=== PATIENT | female | born 1960 | race Caucasian/White ===

== ENCOUNTER 2022-10-02 12:40 | Emergency (ER) | payer SELFPAY ==
[2022-10-02] VITALS (49 sets, daily range): BP systolic 125–194; BP diastolic 69–114; PULSE 73–112; RESP 10–20; TEMP 35.8–38.4; O2SAT 95–100; BMI 35.6
--- NOTE | 2022-10-02 12:46 | CT_ITS ---
The [address] [address] Patient Name: BRIJESH CHOWDARY MRN: [id number] date: 1960 Sex: F Assigned Patient Location: ER Current Patient Location: Accession/Order Number: [id number] Exam Date: 10/02/2022 13:02 Report Date: 10/02/2022 13:32 At the request of: MERLYN CLINE Procedure: CT stroke head/brain wo con EXAM: CT stroke head/brain wo con; [id number] REASON FOR EXAM: altered MS COMPARISON: None. TECHNIQUE: Axial CT images of the head obtained without contrast. Multiplanar reformats generated at the scanner. Dose reduction technique used: Automated exposure control and/or adjustment of the mA and/or kV according to patient size and/or use of iterative reconstruction technique. FINDINGS: Parenchyma: -Mild generalized cerebral volume loss. -No midline shift or mass effect. Basilar cisterns are patent. -No acute intracranial hemorrhage. -Medium size area of peripheral hypoattenuation and encephalomalacia in the medial aspect of the left occipital lobe and left posterior parietal lobe (for example series 6 image 29). -No other loss of jennings-white differentiation. Extra-axial spaces: No extra-axial fluid collection or hemorrhage. Ventricles: Within expected limits given degree of cerebral volume loss. Mild ex vacuo dilatation in the occipital horn of the left lateral ventricle. Paranasal sinuses: Visualized paranasal sinuses are clear. Mastoid air cells: Visualized mastoids are clear. Orbits: No acute abnormality. Osseous: No acute findings. Soft tissues: No acute abnormality. CT/CT stroke head/brain wo con IMPRESSION: 1. Medium-sized chronic appearing infarct to the left occipital lobe/posterior parietal lobe. 2. No acute intercranial hemorrhage or acute infarct demonstrated. Results of chronic appearing left occipital infarct and no acute intracranial abnormality conveyed to Anna Matthews N.P. by Dr. Clemens at 10/02/2022 10:31 AM PDT. Electronically authenticated by: TIFFANIE CLEMENS Date: 10/02/2022 13:32
--- NOTE | 2022-10-02 12:46 | XR_ITS ---
The [address] [address] Patient Name: BRIJESH CHOWDARY MRN: [id number] date: 1960 Sex: F Assigned Patient Location: ED.MAIN Current Patient Location: ER Accession/Order Number: [id number] Exam Date: 10/02/2022 13:30 Report Date: 10/02/2022 13:47 At the request of: MERLYN CLINE Procedure: XR chest 1V EXAMINATION: XR chest 1V HISTORY: altered MS COMPARISON: No relevant comparison available. FINDINGS: LUNGS: No significant pulmonary parenchymal abnormalities. VASCULATURE: No increased pulmonary vasculature. PLEURA: No pneumothorax, effusion, or pleural thickening. CARDIAC: No cardiomegaly or cardiac silhouette abnormality. MEDIASTINUM: No visible mass or adenopathy. BONES: No fracture or visible bone lesion. OTHER: Defibrillator pads partially obscure the left lung apex and base. XR/XR chest 1V IMPRESSION: 1. No acute cardiopulmonary process or suspicious findings. Electronically authenticated by: BETZAIDA WEBBER Date: 10/02/2022 13:47
--- NOTE | 2022-10-02 12:46 | ECG_ITS ---
The [facility] Test Date: 2022-10-02 Pat Name: BRIJESH CHOWDARY Department: Room: - Gender: Female Consulting Technical Director: : 1960 Requested By: MADDY HARDING Order Number: [id number] Reading MD: ARABELLA LARA Measurements Intervals Landing Rate: 79 P: 37 WV: 156 QRS: 63 QRSD: 78 T: 58 QT: 510 QTc: 545 Interpretive Statements 1100 Sinus rhythm with occasional supraventricular premature complexes ST/T wave changes, can't exclude inferolateral ischemia 8304 Long QTc interval 9150 abnormal ECG No previous ECG available for comparison Electronically Signed On 10-03-2022 7:12:39 EDT by ARABELLA LARA
[2022-10-02 13:09] LABS: Bilirubin Urine NEGATIVE (NEGATIVE); Blood Urine NEGATIVE (NEGATIVE); Clarity Urine CLEAR (CLEAR); Color Urine YELLOW (YELLOW); Glucose Urine UA 250 mg/dL (NEGATIVE); Ketones Urine 15 mg/dL (NEGATIVE); Leukocyte Esterase Urine NEGATIVE (NEGATIVE); Nitrite Urine NEGATIVE (NEGATIVE); Protein Urine NEGATIVE (NEG/TRACE); Urobilinogen Urine 0.2 EU/dL (0.2-1.0); pH Urine 5.5 (5.0-9.0)
[2022-10-02 13:18] LABS: Bacteria Urine NONE SEEN #/HPF (NONE SEEN); Mucus Urine NONE SEEN (NONE SEEN); RBC Urine 0-2 #/HPF (0-2); Squamous Epithelial Cell Urine RARE #/LPF (NONE/RARE); WBC Urine NONE SEEN #/HPF (NONE SEEN)
[2022-10-02 13:19] LABS: ABG PCO2 35.7 mmHg (35.0-45.0); HCO3 ABG 22.2 mmol/L (22.0-26.0); PO2 ABG >100.0 mmHg (80.0-100.0); pH ABG 7.401 (7.350-7.450)
[2022-10-02 13:20] LABS: Allen Test POSITIVE (POSITIVE); Base Excess ABG -2.6 mmol/L (-2.0-2.0); Liters per Minute 15; O2 Mode NRBM; Puncture Site R RADIAL
--- NOTE | 2022-10-02 13:27 | RESP.RT ---
removed NRBM due to hyperoxygenation per blood gas, placed on
--- NOTE | 2022-10-02 13:28 | RESP.RT ---
removed NRBM and placed on 2 LPM NC due to hyperoxygenation per blood gas.
[2022-10-02 14:25] LABS: Hematocrit 43.6 % (36.0-48.0); Hemoglobin 14.9 g/dL (12.0-16.0); Mean Corpuscular HGB Conc 34.2 g/dL (29.9-35.2); Mean Corpuscular Hemoglobin 28.1 pg (26.7-34.0); Mean Corpuscular Volume 82.3 fL (81.0-99.0); Mean Platelet Volume 10.5 fL (9.5-13.5); Platelet Count 425 10^3/uL (150-450); Red Cell Distribution Width 13.1 % (11.0-15.0); White Blood Count 24.7 10^3/uL (4.0-11.0)
[2022-10-02 14:32] LABS: Alanine Aminotransferase 32 U/L (14-59); Albumin Globulin Ratio 1.3; Alkaline Phosphatase 121 U/L (46-116); Anion Gap 18.1; Aspartate Amino Transferase 24 U/L (15-37); BUN Creatinine Ratio 13.6; Bilirubin Direct 0.1 mg/dL (0.0-0.2); Bilirubin Total 0.5 mg/dL (0.2-1.0); Carbon Dioxide 25.3 mmol/L (21.0-32.0); Chloride 98 mmol/L (98-107); Estimated GFR (African America >60 (>=60); Estimated GFR (Non-African Ame 55 (>=60); Globulin 3.1 g/dL; Glucose 377 mg/dL (74-106); Sodium 139 mmol/L (136-145); Total Protein 7.1 g/dL (6.4-8.2); Troponin I High Sensitivity 4.9 pg/mL (4.0-51.3)
[2022-10-02 14:38] LABS: Potassium 2.4 mmol/L (3.5-5.1)
[2022-10-02 14:51] LABS: Lymphocytes Absolute Manual 1.48 10^3/uL (1.20-3.80); Monocytes Absolute Manual 1.48 10^3/uL (0.30-0.80); Segmented Neut Absolute Manual 21.73 10^3/uL (1.4-6.5)
[2022-10-02] MEDS: PIPERACILLIN SODIUM/TAZOBACTAM 3.375 GM in 0.9 % SODIUM CHLORIDE 50 ML IV ×2 (15:07→23:45)
[2022-10-02 15:20] LABS: Ammonia <10 umol/L (11-32)
[2022-10-02 15:22] LABS: Acetaminophen <2.0 ug/mL (10.0-30.0); Alanine Aminotransferase 29 U/L (14-59); Albumin Globulin Ratio 1.2; Albumin Level 3.9 g/dL (3.4-5.0); Alkaline Phosphatase 120 U/L (46-116); Aspartate Amino Transferase 22 U/L (15-37); Bilirubin Direct 0.1 mg/dL (0.0-0.2); Bilirubin Total 0.5 mg/dL (0.2-1.0); Globulin 3.2 g/dL; Salicylate 4.3 mg/dL (<=19.9); Total Protein 7.1 g/dL (6.4-8.2)
[2022-10-02 15:26] LABS: Ethanol <3 mg/dL
--- NOTE | 2022-10-02 15:38 | CT_ITS ---
The [address] [address] Patient Name: BRIJESH CHOWDARY MRN: [id number] date: 1960 Sex: F Assigned Patient Location: ER Current Patient Location: Accession/Order Number: [id number] Exam Date: 10/02/2022 16:50 Report Date: 10/02/2022 17:32 At the request of: MERLYN CLINE Procedure: CT abdomen pelvis w con EXAM: CT abdomen pelvis w con TECHNIQUE: Axial CT images were obtained of the abdomen and pelvis with intravenous contrast. Sagittal and coronal reformatted images were also obtained. Dose reduction techniques were achieved by using automated exposure control and/or adjustment of mA and/or kV according to patient size and/or use of iterative reconstruction technique. HISTORY: elevated WBC COMPARISON: None. FINDINGS: Lower chest: Bands of linear atelectasis in the posterior lower lobes. Liver: Diffuse decreased attenuation of liver consistent with steatosis. Gallbladder: The gallbladder is unremarkable. There is no intra or extrahepatic biliary dilatation. Pancreas: The pancreas is homogeneous without evidence for mass lesion or inflammation. Spleen: The spleen is unremarkable without evidence for mass lesion. Adrenal glands: 16 mm nodule of the right adrenal gland, most likely a benign adenoma. Kidneys and bladder: The kidneys are unremarkable with no evidence for mass lesion, hydronephrosis or inflammation. The ureters demonstrate normal caliber. The urinary bladder is collapsed around a Chapman catheter. GI Tract: Stomach is unremarkable. Visualized small bowel is unremarkable without evidence for obstruction or active inflammation. The visualized portion of the large bowel is unremarkable. Reproductive: Unremarkable Lymph nodes: No retroperitoneal or abdominal lymphadenopathy. Vascular: The aorta is not dilated. Mesenteric vessels appear patent. Peritoneum: No free intraperitoneal air or fluid. No acute inflammation. Abdominal wall: Unremarkable without acute abnormality. CT/CT abdomen pelvis w con IMPRESSION: No acute abdominal pathology. No acute inflammatory process. No obstructing urinary tract stone. No evidence for bowel obstruction. Electronically authenticated by: MARYLU LARSON Date: 10/02/2022 17:32
[2022-10-02] MEDS: VANCOMYCIN HCL 1,000 MG in 0.9 % SODIUM CHLORIDE 250 ML 250 MG IV (15:42)
--- NOTE | 2022-10-02 15:43 | ED.GENADUL1 ---
HPI - General Adult General Chief complaint: Neuro Symptoms/Deficit Stated complaint: STROKE SYPTOMS Time Seen by Provider: 10/02/22 12:45 Source: patient Mode of arrival: ambulance Limitations: no limitations History of Present Illness HPI narrative: 62-year-old female presents for altered mental status. She is unable to provide any history. All the history is obtained from the paramedics and the and the son. Reports that they had a normal day yesterday and had gone out for some ice cream. They were watching TV and she went to bed about 8 PM and that was the last known well. She woke up today and wasn't quite responsive so he eventually called paramedics and they transported her here. They had a blood sugar of two hundred ninety and they gave her 8 mg total of Narcan with no significant change. She had not complained of a headache or fever or abdominal pain yesterday she wasn't coughing or short of breath. Family reports that she doesn't use any drugs. Related Data Allergies Allergy/AdvReac Type Severity Reaction Status Date / Time No Known Drug Allergies Allergy Verified 10/02/22 12:44 Review of Systems ROS Narrative unobtainable, altered mental status Exam Narrative Exam Narrative: Nurses note and vital signs reviewed and patient is not hypoxic. General: The patient appears to be sleeping but she'll shake her head yes or no appropriately and follows simple commands. Skin: Warm, dry, no pallor noted. There is no rash noted. Head: Normocephalic, atraumatic Eye: Normal conjunctiva, no drainage Ears, Nose, Mouth, and Throat: oral mucosa is moist. Nares patent. Cardiovascular: Regular Rate and Rhythm, not tachycardic Respiratory: Patient is in no distress, no accessory muscle use, lungs are clear to auscultation, no wheezing, rales or rhonchi Back: non-tender GI: soft and nontender Musculoskeletal: The patient has no evidence of calf tenderness, no pitting edema, symmetrical pulses noted bilaterally Neurological: she is quite drowsy. She'll follow simple commands. She is able to tell us her name. Psychiatric: not uncooperative. Difficult to test psychiatric. Constitutional Vital Signs, click to edit/add: Last Vital Signs Temp 96.4 F L 10/02/22 12:44 Pulse 102 H 10/02/22 15:30 Resp 16 10/02/22 15:30 BP 159/85 H 10/02/22 15:30 Pulse Ox 99 10/02/22 15:30 O2 Del Method Nasal Cannula 10/02/22 13:28 O2 Flow Rate 2 10/02/22 13:28 Course Vital Signs Vital signs: Vital Signs Temperature 96.4 F L 10/02/22 12:44 Pulse Rate 73 10/02/22 12:44 Respiratory Rate 10 L 10/02/22 12:44 Blood Pressure 175/82 H 10/02/22 12:44 Pulse Oximetry 100 10/02/22 12:44 Temperature 96.4 F L 10/02/22 12:44 Pulse Rate 102 H 10/02/22 15:30 Respiratory Rate 16 10/02/22 15:30 Blood Pressure 159/85 H 10/02/22 15:30 Pulse Oximetry 99 10/02/22 15:30 Oxygen Delivery Method Nasal Cannula 10/02/22 13:28 Oxygen Delivery Flow Rate 2 10/02/22 13:28 Medical Decision Making MDM Narrative Medical decision making narrative: the patient presents with altered mental status of uncertain etiology. WBC is twenty-four thousand and lactic acid is eight. Blood cultures were obtained and she was given IV Zosyn and vancomycin. She was also given IV fluids. At no point was she tachycardic or hypotensive. Chest x-ray shows no infiltrate and urinalysis does not show urinary tract infection. CAT scan of her abdomen is pending. There is no clear evidence of a stroke but I'm suspicious of a stroke and she'll likely need follow-up MRI and receiving institution, [facility]. Meningitis was also considered but LP would be difficult technically but she is covered with IV Zosyn and vancomycin. Family has requested transfer to [facility] and I've spoken to Dr. Garces from neurology who accepts the patient and I'll well also speak to the hospitalist there. ABG shows a pH of 7.40 and a CO2 of thirty-five. She is maintained excellent O2 sat duration on nasal cannula oxygen. Drug screen is pending at the time of this dictation. Differential Diagnosis Differential Diagnosis: stroke, overdose, pneumonia, sepsis, urinary tract infection, septic emboli Lab Data Lab results reviewed: Yes I reviewed the patient's lab results Labs: Lab Results 10/02/22 10/02/22 10/02/22 Range/Units 12:51 13:13 14:07 WBC 24.7 H (4.0-11.0) 10^3/uL RBC 5.30 (4.20-5.40) 10^6/uL Hgb 14.9 (12.0-16.0) g/dL Hct 43.6 (36.0-48.0) % MCV 82.3 (81.0-99.0) fL MCH 28.1 (26.7-34.0) pg MCHC 34.2 (29.9-35.2) g/dL RDW 13.1 (11.0-15.0) % Plt Count 425 (150-450) 10^3/uL MPV 10.5 (9.5-13.5) fL Seg Neuts % (Manual) 88.0 Lymphocytes % (Manual) 6.0 L (20.5-60.0) % Monocytes % (Manual) 6.0 (1.7-12.0) % Eosinophils % (Manual) 0.0 L (0.9-7.0) % Basophils % (Manual) 0.0 L (0.2-2.0) % Neutrophils # (Manual) 21.73 H (1.4-6.5) 10^3/uL Lymphocytes # (Manual) 1.48 (1.20-3.80) 10^3/uL Monocytes # (Manual) 1.48 H (0.30-0.80) 10^3/uL Eosinophils # (Manual) 0.00 (0.00-0.70) 10^3/uL Basophils # (Manual) 0.00 (0.00-0.10) 10^3/uL Puncture Site R radial ABG pH 7.401 (7.350-7.450) ABG pCO2 35.7 (35.0-45.0) mmHg ABG pO2 >100.0 H (80.0-100.0) mmHg ABG HCO3 22.2 (22.0-26.0) mmol/L ABG Base Excess -2.6 L (-2.0-2.0) mmol/L Tal Test Positive (POSITIVE) O2 Liters/Min 15 Sodium 139 (136-145) mmol/L Potassium 2.4 L* (3.5-5.1) mmol/L Chloride 98 (98-107) mmol/L Carbon Dioxide 25.3 (21.0-32.0) mmol/L Anion Gap 18.1 BUN 14.0 (7.0-18.0) mg/dL Creatinine 1.03 H (0.55-1.02) mg/dL Est GFR ( Amer) >60 (>=60) Est GFR (Non-Af Amer) 55 L (>=60) BUN/Creatinine Ratio 13.6 Glucose 377 H (74-106) mg/dL Lactate (0.4-2.0) mmol/L Calcium 9.0 (8.5-10.1) mg/dL Total Bilirubin 0.5 (0.2-1.0) mg/dL Direct Bilirubin 0.1 (0.0-0.2) mg/dL AST 24 (15-37) U/L ALT 32 (14-59) U/L Alkaline Phosphatase 121 H (46-116) U/L Ammonia (11-32) umol/L Troponin I High Sens 4.9 (4.0-51.3) pg/mL Total Protein 7.1 (6.4-8.2) g/dL Albumin 4.0 (3.4-5.0) g/dL Globulin 3.1 g/dL Albumin/Globulin Ratio 1.3 Urine Color Yellow (YELLOW) Urine Clarity Clear (CLEAR) Urine pH 5.5 (5.0-9.0) Ur Specific [place] 1.020 (1.005-1.025) Urine Protein Negative (NEG/TRACE) mg/dL Urine Glucose (UA) 250 A (NEGATIVE) mg/dL Urine Ketones 15 A (NEGATIVE) mg/dL Urine Occult Blood Negative (NEGATIVE) Urine Nitrite Negative (NEGATIVE) Urine Bilirubin Negative (NEGATIVE) Urine Urobilinogen 0.2 (0.2-1.0) EU/dL Ur Leukocyte Esterase Negative (NEGATIVE) Urine RBC 0-2 (0-2) #/HPF Urine WBC None seen (NONE SEEN) #/HPF Ur Squamous Epith Cells Rare (NONE/RARE) #/LPF Urine Bacteria None seen (NONE SEEN) #/HPF Urine Mucus None seen (NONE SEEN) Salicylates (<=19.9) mg/dL Urine Opiates Screen (NEGATIVE) Ur Buprenorphine Scrn (NEGATIVE) Ur Oxycodone Screen (NEGATIVE) Urine Methadone Screen (NEGATIVE) Ur Propoxyphene Screen (NEGATIVE) Acetaminophen (10.0-30.0) ug/mL Ur Barbiturates Screen (NEGATIVE) U Tricyclic Antidepress (NEGATIVE) Ur Phencyclidine Scrn (NEGATIVE) Ur Amphetamines Screen (NEGATIVE) U Methamphetamines Scrn (NEGATIVE) U Benzodiazepines Scrn (NEGATIVE) Urine Cocaine Screen (NEGATIVE) U Cannabinoids Screen (NEGATIVE) Ethanol Quant mg/dL 10/02/22 10/02/22 Range/Units 14:09 15:26 WBC (4.0-11.0) 10^3/uL RBC (4.20-5.40) 10^6/uL Hgb (12.0-16.0) g/dL Hct (36.0-48.0) % MCV (81.0-99.0) fL MCH (26.7-34.0) pg MCHC (29.9-35.2) g/dL RDW (11.0-15.0) % Plt Count (150-450) 10^3/uL MPV (9.5-13.5) fL Seg Neuts % (Manual) Lymphocytes % (Manual) (20.5-60.0) % Monocytes % (Manual) (1.7-12.0) % Eosinophils % (Manual) (0.9-7.0) % Basophils % (Manual) (0.2-2.0) % Neutrophils # (Manual) (1.4-6.5) 10^3/uL Lymphocytes # (Manual) (1.20-3.80) 10^3/uL Monocytes # (Manual) (0.30-0.80) 10^3/uL Eosinophils # (Manual) (0.00-0.70) 10^3/uL Basophils # (Manual) (0.00-0.10) 10^3/uL Puncture Site ABG pH (7.350-7.450) ABG pCO2 (35.0-45.0) mmHg ABG pO2 (80.0-100.0) mmHg ABG HCO3 (22.0-26.0) mmol/L ABG Base Excess (-2.0-2.0) mmol/L Tal Test (POSITIVE) O2 Liters/Min Sodium (136-145) mmol/L Potassium (3.5-5.1) mmol/L Chloride (98-107) mmol/L Carbon Dioxide (21.0-32.0) mmol/L Anion Gap BUN (7.0-18.0) mg/dL Creatinine (0.55-1.02) mg/dL Est GFR ( Amer) (>=60) Est GFR (Non-Af Amer) (>=60) BUN/Creatinine Ratio Glucose (74-106) mg/dL Lactate 8.0 H* (0.4-2.0) mmol/L Calcium (8.5-10.1) mg/dL Total Bilirubin 0.5 (0.2-1.0) mg/dL Direct Bilirubin 0.1 (0.0-0.2) mg/dL AST 22 (15-37) U/L ALT 29 (14-59) U/L Alkaline Phosphatase 120 H (46-116) U/L Ammonia <10 L (11-32) umol/L Troponin I High Sens (4.0-51.3) pg/mL Total Protein 7.1 (6.4-8.2) g/dL Albumin 3.9 (3.4-5.0) g/dL Globulin 3.2 g/dL Albumin/Globulin Ratio 1.2 Urine Color (YELLOW) Urine Clarity (CLEAR) Urine pH (5.0-9.0) Ur Specific [place] (1.005-1.025) Urine Protein (NEG/TRACE) mg/dL Urine Glucose (UA) (NEGATIVE) mg/dL Urine Ketones (NEGATIVE) mg/dL Urine Occult Blood (NEGATIVE) Urine Nitrite (NEGATIVE) Urine Bilirubin (NEGATIVE) Urine Urobilinogen (0.2-1.0) EU/dL Ur Leukocyte Esterase (NEGATIVE) Urine RBC (0-2) #/HPF Urine WBC (NONE SEEN) #/HPF Ur Squamous Epith Cells (NONE/RARE) #/LPF Urine Bacteria (NONE SEEN) #/HPF Urine Mucus (NONE SEEN) Salicylates 4.3 (<=19.9) mg/dL Urine Opiates Screen Negative (NEGATIVE) Ur Buprenorphine Scrn Negative (NEGATIVE) Ur Oxycodone Screen Negative (NEGATIVE) Urine Methadone Screen Negative (NEGATIVE) Ur Propoxyphene Screen Negative (NEGATIVE) Acetaminophen <2.0 L (10.0-30.0) ug/mL Ur Barbiturates Screen Negative (NEGATIVE) U Tricyclic Antidepress Negative (NEGATIVE) Ur Phencyclidine Scrn Negative (NEGATIVE) Ur Amphetamines Screen Negative (NEGATIVE) U Methamphetamines Scrn Negative (NEGATIVE) U Benzodiazepines Scrn Negative (NEGATIVE) Urine Cocaine Screen Negative (NEGATIVE) U Cannabinoids Screen Negative (NEGATIVE) Ethanol Quant <3 mg/dL Imaging Data CT scan - head: Radiologist's impression: CT brain per radiologist shows remote left occipital stroke. Chest x-ray per radiologist shows no infiltrate. ECG Data Attestation: I personally reviewed and interpreted this ECG as follows: (EKG on my interpretation shows sinus rhythm without acute change) Critical Care Time Critical Care Time Total Critical Care Time: 100 Attestation: due to the high probability of sudden and clinically significant deterioration the patient's condition she required the highest level of preparedness to intervene urgently. I provided critical care time including documentation time, medication orders and management, reevaluation, vital sign assessment, ordering and reviewing her lab tests and ordering and reviewing of x-ray studies. Aggregate critical care time is one hundred minutes including only time during which has engaged work directly related to her care did not include time spent treating other patients simultaneously. Discharge Plan Discharge Chief Complaint: Neuro Symptoms/Deficit Clinical Impression: Altered mental status Patient Disposition: [facility] Time of Disposition Decision: 15:59 Discharge Location: [facility] Mode of Transportation: EMS Referrals: MADDY HARDING [Primary Care Provider] - 1 week
[2022-10-02 15:44] LABS: Amphetamine Screen Urine NEGATIVE (NEGATIVE); Barbiturates Screen Urine NEGATIVE (NEGATIVE); Benzodiazepines Screen Urine NEGATIVE (NEGATIVE); Buprenorphine Screen Urine NEGATIVE (NEGATIVE); Cannabinoid Screen Urine NEGATIVE (NEGATIVE); Cocaine Screen Urine NEGATIVE (NEGATIVE); Methadone Screen Urine NEGATIVE (NEGATIVE); Methamphetamines Screen Urine NEGATIVE (NEGATIVE); Opiate Screen Urine NEGATIVE (NEGATIVE); Oxycodone Screen Urine NEGATIVE (NEGATIVE); Phencyclidine Screen Urine NEGATIVE (NEGATIVE); Tricyclic Antidepressant Urine NEGATIVE (NEGATIVE)
[2022-10-02] MEDS: 0.9 % SODIUM CHLORIDE 1,000 ML 1000 ML IV ×2 (17:21→18:35)
[2022-10-02 18:08] LABS: Lactate/Lactic Acid 7.9 mmol/L (0.4-2.0)
[2022-10-02] MEDS: POTASSIUM CHLORIDE IN WATER 10 MEQ/100 ML PIGGYBACK 100 MEQ IV ×4 (18:35→21:34)
[2022-10-02 20:19] LABS: ABG PCO2 31.2 mmHg (35.0-45.0); Allen Test POSITIVE (POSITIVE); Base Excess ABG -3.2 mmol/L (-2.0-2.0); Oxygen Saturation ABG 97.7 %; PO2 ABG 83.9 mmHg (80.0-100.0); pH ABG 7.437 (7.350-7.450)
[2022-10-02 20:20] LABS: Liters per Minute 2; O2 Mode NASAL CANNULA; Puncture Site R RADIAL
[2022-10-02] MEDS: ACETAMINOPHEN 650 MG RECTAL SUPPOSITORY PR (20:22)
[2022-10-02 20:39] LABS: Adenovirus NOT DETECTED (NOT DETECTE); Bordetella parapertussis NOT DETECTED (NOT DETECTE); Coronavirus 229E NOT DETECTED (NOT DETECTE); Coronavirus HKU1 NOT DETECTED (NOT DETECTE); Coronavirus NL63 NOT DETECTED (NOT DETECTE); Coronavirus OC43 NOT DETECTED (NOT DETECTE); Human Metapneumovirus NOT DETECTED (NOT DETECTE); Human Rhinovirus/Enterovirus NOT DETECTED (NOT DETECTE); Influenza A NOT DETECTED (NOT DETECTE); Influenza B NOT DETECTED (NOT DETECTE); Mycoplasma pneumoniae NOT DETECTED (NOT DETECTE); Parainfluenza Virus 1 NOT DETECTED (NOT DETECTE); Parainfluenza Virus 2 NOT DETECTED (NOT DETECTE); Parainfluenza Virus 3 NOT DETECTED (NOT DETECTE); Parainfluenza Virus 4 NOT DETECTED (NOT DETECTE); Respiratory Syncytial Virus NOT DETECTED (NOT DETECTE); SARS-CoV-2 NOT DETECTED (NOT DETECTE)
[2022-10-02 21:09] LABS: Troponin I High Sensitivity 15.4 pg/mL (4.0-51.3)
[2022-10-02 21:12] LABS: Lactate/Lactic Acid 7.6 mmol/L (0.4-2.0)
--- NOTE | 2022-10-02 21:46 | ED_ITS ---
HPI - General Adult General Chief complaint: Neuro Symptoms/Deficit Stated complaint: STROKE SYPTOMS Time Seen by Provider: 10/02/22 12:45 Source: patient Mode of arrival: ambulance Limitations: no limitations History of Present Illness HPI narrative: 62-year-old female with a history of diabetes was signed out to me at shift change. She is brought to the emergency department home for altered mental status. History is obtained from the patient's and her son. The states she has been having some issues since July with some falls. She had a fall in July and hit her head. She had some tingling on her cheek at that time. She was seen by Dr. Faulkner, her family physician and that her tingling in her cheek was from the head injury. She did not have a stroke workup at that time. The patient's son is a nurse at [employer]. He states that she was in her normal state of health until today. He states that last weekend she was at his house swimming in the pool with his kids. She does at times have a hard time monitoring her glucose. The patient's states that this morning she had several episodes of vomiting and then became extremely lethargic. The working diagnosis is still stroke. She does have some movement of both lower extremities. She is having an remittent shaking of the right knee. She does respond to verbal stimuli and opens her eyes when you call her name and moves both lower extremities when you touch her feet. She was noticed to have a markedly elevated white count and elevated lactic acid. She was empirically treated with IV Zosyn and vancomycin. CT scan of the brain and abdomen an x-ray of the chest was ordered. Those findings are included in Dr. Brock's chart and no acute findings were noted. She has an elevated lactic acid. She had normal left her electrolytes with the exception of a potassium of 2.4 which was replaced IV. Respiratory panel , UA and urine toxicology were all normal. The patient does have a gag reflex. I discussed intubating her with her son because I'm concerned about her GCS which is about a 4 at this time. The patient's son does not wish to have her intubated at least at this time. She is persistently lethargic but does respond somewhat to verbal and tactile stimuli as previously stated. Her son was in agreement wt the plan for transfer to [facility]. He was aware of the critical nature of her condition but requested that she not be intubated. She was given a second dose of IV zosyn prior to her transfer. Related Data Home Medications Medication Instructions Recorded Confirmed hydrochlorothiazide 25 mg tablet 25 mg PO DAILY 10/02/22 10/02/22 insulin human U-100 NPH-regulr 35 unit subcut BID 10/02/22 10/02/22 70-30 mix 100 unit/mL subcutaneous susp (Novolin 70/30 U-100 Insulin) lisinopril 10 mg tablet 10 mg PO DAILY 10/02/22 10/02/22 meclizine 25 mg tablet 25 mg PO TID 10/02/22 10/02/22 Allergies Allergy/AdvReac Type Severity Reaction Status Date / Time No Known Drug Allergies Allergy Verified 10/02/22 12:44 Exam Constitutional Vital Signs, click to edit/add: Last Vital Signs Temp 100.4 F 10/03/22 00:32 Pulse 111 H 10/03/22 00:32 Resp 16 10/03/22 00:32 BP 138/64 10/03/22 00:32 Pulse Ox 96 10/03/22 00:32 O2 Del Method Nasal Cannula 10/03/22 00:32 O2 Flow Rate 2 10/03/22 00:32 Course Vital Signs Vital signs: Vital Signs Temperature 96.4 F L 10/02/22 12:44 Pulse Rate 73 10/02/22 12:44 Respiratory Rate 10 L 10/02/22 12:44 Blood Pressure 175/82 H 10/02/22 12:44 Pulse Oximetry 100 10/02/22 12:44 Temperature 100.4 F 10/03/22 00:32 Pulse Rate 111 H 10/03/22 00:32 Respiratory Rate 16 10/03/22 00:32 Blood Pressure 138/64 10/03/22 00:32 Pulse Oximetry 96 10/03/22 00:32 Oxygen Delivery Method Nasal Cannula 10/03/22 00:32 Oxygen Delivery Flow Rate 2 10/03/22 00:32 Medical Decision Making Lab Data Labs: Lab Results 10/02/22 10/02/22 10/02/22 Range/Units 12:51 13:13 14:07 WBC 24.7 H (4.0-11.0) 10^3/uL RBC 5.30 (4.20-5.40) 10^6/uL Hgb 14.9 (12.0-16.0) g/dL Hct 43.6 (36.0-48.0) % MCV 82.3 (81.0-99.0) fL MCH 28.1 (26.7-34.0) pg MCHC 34.2 (29.9-35.2) g/dL RDW 13.1 (11.0-15.0) % Plt Count 425 (150-450) 10^3/uL MPV 10.5 (9.5-13.5) fL Seg Neuts % (Manual) 88.0 Lymphocytes % (Manual) 6.0 L (20.5-60.0) % Monocytes % (Manual) 6.0 (1.7-12.0) % Eosinophils % (Manual) 0.0 L (0.9-7.0) % Basophils % (Manual) 0.0 L (0.2-2.0) % Neutrophils # (Manual) 21.73 H (1.4-6.5) 10^3/uL Lymphocytes # (Manual) 1.48 (1.20-3.80) 10^3/uL Monocytes # (Manual) 1.48 H (0.30-0.80) 10^3/uL Eosinophils # (Manual) 0.00 (0.00-0.70) 10^3/uL Basophils # (Manual) 0.00 (0.00-0.10) 10^3/uL Puncture Site R radial ABG pH 7.401 (7.350-7.450) ABG pCO2 35.7 (35.0-45.0) mmHg ABG pO2 >100.0 H (80.0-100.0) mmHg ABG HCO3 22.2 (22.0-26.0) mmol/L ABG O2 Saturation % ABG Base Excess -2.6 L (-2.0-2.0) mmol/L Tal Test Positive (POSITIVE) O2 Liters/Min 15 Sodium 139 (136-145) mmol/L Potassium 2.4 L* (3.5-5.1) mmol/L Chloride 98 (98-107) mmol/L Carbon Dioxide 25.3 (21.0-32.0) mmol/L Anion Gap 18.1 BUN 14.0 (7.0-18.0) mg/dL Creatinine 1.03 H (0.55-1.02) mg/dL Est GFR ( Amer) >60 (>=60) Est GFR (Non-Af Amer) 55 L (>=60) BUN/Creatinine Ratio 13.6 Glucose 377 H (74-106) mg/dL Lactate (0.4-2.0) mmol/L Calcium 9.0 (8.5-10.1) mg/dL Total Bilirubin 0.5 (0.2-1.0) mg/dL Direct Bilirubin 0.1 (0.0-0.2) mg/dL AST 24 (15-37) U/L ALT 32 (14-59) U/L Alkaline Phosphatase 121 H (46-116) U/L Ammonia (11-32) umol/L Troponin I High Sens 4.9 (4.0-51.3) pg/mL Total Protein 7.1 (6.4-8.2) g/dL Albumin 4.0 (3.4-5.0) g/dL Globulin 3.1 g/dL Albumin/Globulin Ratio 1.3 Urine Color Yellow (YELLOW) Urine Clarity Clear (CLEAR) Urine pH 5.5 (5.0-9.0) Ur Specific [place] 1.020 (1.005-1.025) Urine Protein Negative (NEG/TRACE) mg/dL Urine Glucose (UA) 250 A (NEGATIVE) mg/dL Urine Ketones 15 A (NEGATIVE) mg/dL Urine Occult Blood Negative (NEGATIVE) Urine Nitrite Negative (NEGATIVE) Urine Bilirubin Negative (NEGATIVE) Urine Urobilinogen 0.2 (0.2-1.0) EU/dL Ur Leukocyte Esterase Negative (NEGATIVE) Urine RBC 0-2 (0-2) #/HPF Urine WBC None seen (NONE SEEN) #/HPF Ur Squamous Epith Cells Rare (NONE/RARE) #/LPF Urine Bacteria None seen (NONE SEEN) #/HPF Urine Mucus None seen (NONE SEEN) Salicylates (<=19.9) mg/dL Urine Opiates Screen (NEGATIVE) Ur Buprenorphine Scrn (NEGATIVE) Ur Oxycodone Screen (NEGATIVE) Urine Methadone Screen (NEGATIVE) Ur Propoxyphene Screen (NEGATIVE) Acetaminophen (10.0-30.0) ug/mL Ur Barbiturates Screen (NEGATIVE) U Tricyclic Antidepress (NEGATIVE) Ur Phencyclidine Scrn (NEGATIVE) Ur Amphetamines Screen (NEGATIVE) U Methamphetamines Scrn (NEGATIVE) U Benzodiazepines Scrn (NEGATIVE) Urine Cocaine Screen (NEGATIVE) U Cannabinoids Screen (NEGATIVE) Ethanol Quant mg/dL Adenovirus (PCR) (NOT DETECTE) C. pneumoniae DNA (PCR) (NOT DETECTE) Coronavirus Type OC43 (NOT DETECTE) Coronavirus Type HKU1 (NOT DETECTE) Coronavirus Type 229E (NOT DETECTE) Coronavirus Type NL63 (NOT DETECTE) Human Metapneumovir PCR (NOT DETECTE) M. pneumoniae (PCR) (NOT DETECTE) Parainfluenza PCR (NOT DETECTE) Parainfluenza 2 (PCR) (NOT DETECTE) Parainfluenza 3 (PCR) (NOT DETECTE) Parainfluenza 4 (PCR) (NOT DETECTE) RSV (RT-PCR) (NOT DETECTE) Entero/Rhino (PCR) (NOT DETECTE) SARS-CoV-2 (PCR) (NOT DETECTE) Bordetella pertussis (PCR) (NOT DETECTE) B parapertussis DNA PCR (NOT DETECTE) Influenza Type A (PCR) (NOT DETECTE) Influenza Type B (PCR) (NOT DETECTE) 10/02/22 10/02/22 10/02/22 Range/Units 14:09 15:26 17:40 WBC (4.0-11.0) 10^3/uL RBC (4.20-5.40) 10^6/uL Hgb (12.0-16.0) g/dL Hct (36.0-48.0) % MCV (81.0-99.0) fL MCH (26.7-34.0) pg MCHC (29.9-35.2) g/dL RDW (11.0-15.0) % Plt Count (150-450) 10^3/uL MPV (9.5-13.5) fL Seg Neuts % (Manual) Lymphocytes % (Manual) (20.5-60.0) % Monocytes % (Manual) (1.7-12.0) % Eosinophils % (Manual) (0.9-7.0) % Basophils % (Manual) (0.2-2.0) % Neutrophils # (Manual) (1.4-6.5) 10^3/uL Lymphocytes # (Manual) (1.20-3.80) 10^3/uL Monocytes # (Manual) (0.30-0.80) 10^3/uL Eosinophils # (Manual) (0.00-0.70) 10^3/uL Basophils # (Manual) (0.00-0.10) 10^3/uL Puncture Site ABG pH (7.350-7.450) ABG pCO2 (35.0-45.0) mmHg ABG pO2 (80.0-100.0) mmHg ABG HCO3 (22.0-26.0) mmol/L ABG O2 Saturation % ABG Base Excess (-2.0-2.0) mmol/L Tal Test (POSITIVE) O2 Liters/Min Sodium (136-145) mmol/L Potassium (3.5-5.1) mmol/L Chloride (98-107) mmol/L Carbon Dioxide (21.0-32.0) mmol/L Anion Gap BUN (7.0-18.0) mg/dL Creatinine (0.55-1.02) mg/dL Est GFR ( Amer) (>=60) Est GFR (Non-Af Amer) (>=60) BUN/Creatinine Ratio Glucose (74-106) mg/dL Lactate 8.0 H* 7.9 H* (0.4-2.0) mmol/L Calcium (8.5-10.1) mg/dL Total Bilirubin 0.5 (0.2-1.0) mg/dL Direct Bilirubin 0.1 (0.0-0.2) mg/dL AST 22 (15-37) U/L ALT 29 (14-59) U/L Alkaline Phosphatase 120 H (46-116) U/L Ammonia <10 L (11-32) umol/L Troponin I High Sens (4.0-51.3) pg/mL Total Protein 7.1 (6.4-8.2) g/dL Albumin 3.9 (3.4-5.0) g/dL Globulin 3.2 g/dL Albumin/Globulin Ratio 1.2 Urine Color (YELLOW) Urine Clarity (CLEAR) Urine pH (5.0-9.0) Ur Specific [place] (1.005-1.025) Urine Protein (NEG/TRACE) mg/dL Urine Glucose (UA) (NEGATIVE) mg/dL Urine Ketones (NEGATIVE) mg/dL Urine Occult Blood (NEGATIVE) Urine Nitrite (NEGATIVE) Urine Bilirubin (NEGATIVE) Urine Urobilinogen (0.2-1.0) EU/dL Ur Leukocyte Esterase (NEGATIVE) Urine RBC (0-2) #/HPF Urine WBC (NONE SEEN) #/HPF Ur Squamous Epith Cells (NONE/RARE) #/LPF Urine Bacteria (NONE SEEN) #/HPF Urine Mucus (NONE SEEN) Salicylates 4.3 (<=19.9) mg/dL Urine Opiates Screen Negative (NEGATIVE) Ur Buprenorphine Scrn Negative (NEGATIVE) Ur Oxycodone Screen Negative (NEGATIVE) Urine Methadone Screen Negative (NEGATIVE) Ur Propoxyphene Screen Negative (NEGATIVE) Acetaminophen <2.0 L (10.0-30.0) ug/mL Ur Barbiturates Screen Negative (NEGATIVE) U Tricyclic Antidepress Negative (NEGATIVE) Ur Phencyclidine Scrn Negative (NEGATIVE) Ur Amphetamines Screen Negative (NEGATIVE) U Methamphetamines Scrn Negative (NEGATIVE) U Benzodiazepines Scrn Negative (NEGATIVE) Urine Cocaine Screen Negative (NEGATIVE) U Cannabinoids Screen Negative (NEGATIVE) Ethanol Quant <3 mg/dL Adenovirus (PCR) (NOT DETECTE) C. pneumoniae DNA (PCR) (NOT DETECTE) Coronavirus Type OC43 (NOT DETECTE) Coronavirus Type HKU1 (NOT DETECTE) Coronavirus Type 229E (NOT DETECTE) Coronavirus Type NL63 (NOT DETECTE) Human Metapneumovir PCR (NOT DETECTE) M. pneumoniae (PCR) (NOT DETECTE) Parainfluenza PCR (NOT DETECTE) Parainfluenza 2 (PCR) (NOT DETECTE) Parainfluenza 3 (PCR) (NOT DETECTE) Parainfluenza 4 (PCR) (NOT DETECTE) RSV (RT-PCR) (NOT DETECTE) Entero/Rhino (PCR) (NOT DETECTE) SARS-CoV-2 (PCR) (NOT DETECTE) Bordetella pertussis (PCR) (NOT DETECTE) B parapertussis DNA PCR (NOT DETECTE) Influenza Type A (PCR) (NOT DETECTE) Influenza Type B (PCR) (NOT DETECTE) 10/02/22 10/02/2223 Range/Units 20:11 20:15 20:30 WBC (4.0-11.0) 10^3/uL RBC (4.20-5.40) 10^6/uL Hgb (12.0-16.0) g/dL Hct (36.0-48.0) % MCV (81.0-99.0) fL MCH (26.7-34.0) pg MCHC (29.9-35.2) g/dL RDW (11.0-15.0) % Plt Count (150-450) 10^3/uL MPV (9.5-13.5) fL Seg Neuts % (Manual) Lymphocytes % (Manual) (20.5-60.0) % Monocytes % (Manual) (1.7-12.0) % Eosinophils % (Manual) (0.9-7.0) % Basophils % (Manual) (0.2-2.0) % Neutrophils # (Manual) (1.4-6.5) 10^3/uL Lymphocytes # (Manual) (1.20-3.80) 10^3/uL Monocytes # (Manual) (0.30-0.80) 10^3/uL Eosinophils # (Manual) (0.00-0.70) 10^3/uL Basophils # (Manual) (0.00-0.10) 10^3/uL Puncture Site R radial ABG pH 7.437 (7.350-7.450) ABG pCO2 31.2 L (35.0-45.0) mmHg ABG pO2 83.9 (80.0-100.0) mmHg ABG HCO3 21.0 L (22.0-26.0) mmol/L ABG O2 Saturation 97.7 % ABG Base Excess -3.2 L (-2.0-2.0) mmol/L Tal Test Positive (POSITIVE) O2 Liters/Min 2 Sodium (136-145) mmol/L Potassium (3.5-5.1) mmol/L Chloride (98-107) mmol/L Carbon Dioxide (21.0-32.0) mmol/L Anion Gap BUN (7.0-18.0) mg/dL Creatinine (0.55-1.02) mg/dL Est GFR ( Amer) (>=60) Est GFR (Non-Af Amer) (>=60) BUN/Creatinine Ratio Glucose (74-106) mg/dL Lactate 7.6 H* (0.4-2.0) mmol/L Calcium (8.5-10.1) mg/dL Total Bilirubin (0.2-1.0) mg/dL Direct Bilirubin (0.0-0.2) mg/dL AST (15-37) U/L ALT (14-59) U/L Alkaline Phosphatase (46-116) U/L Ammonia (11-32) umol/L Troponin I High Sens 15.4 (4.0-51.3) pg/mL Total Protein (6.4-8.2) g/dL Albumin (3.4-5.0) g/dL Globulin g/dL Albumin/Globulin Ratio Urine Color (YELLOW) Urine Clarity (CLEAR) Urine pH (5.0-9.0) Ur Specific [place] (1.005-1.025) Urine Protein (NEG/TRACE) mg/dL Urine Glucose (UA) (NEGATIVE) mg/dL Urine Ketones (NEGATIVE) mg/dL Urine Occult Blood (NEGATIVE) Urine Nitrite (NEGATIVE) Urine Bilirubin (NEGATIVE) Urine Urobilinogen (0.2-1.0) EU/dL Ur Leukocyte Esterase (NEGATIVE) Urine RBC (0-2) #/HPF Urine WBC (NONE SEEN) #/HPF Ur Squamous Epith Cells (NONE/RARE) #/LPF Urine Bacteria (NONE SEEN) #/HPF Urine Mucus (NONE SEEN) Salicylates (<=19.9) mg/dL Urine Opiates Screen (NEGATIVE) Ur Buprenorphine Scrn (NEGATIVE) Ur Oxycodone Screen (NEGATIVE) Urine Methadone Screen (NEGATIVE) Ur Propoxyphene Screen (NEGATIVE) Acetaminophen (10.0-30.0) ug/mL Ur Barbiturates Screen (NEGATIVE) U Tricyclic Antidepress (NEGATIVE) Ur Phencyclidine Scrn (NEGATIVE) Ur Amphetamines Screen (NEGATIVE) U Methamphetamines Scrn (NEGATIVE) U Benzodiazepines Scrn (NEGATIVE) Urine Cocaine Screen (NEGATIVE) U Cannabinoids Screen (NEGATIVE) Ethanol Quant mg/dL Adenovirus (PCR) Not detected (NOT DETECTE) C. pneumoniae DNA (PCR) Not detected (NOT DETECTE) Coronavirus Type OC43 Not detected (NOT DETECTE) Coronavirus Type HKU1 Not detected (NOT DETECTE) Coronavirus Type 229E Not detected (NOT DETECTE) Coronavirus Type NL63 Not detected (NOT DETECTE) Human Metapneumovir PCR Not detected (NOT DETECTE) M. pneumoniae (PCR) Not detected (NOT DETECTE) Parainfluenza PCR Not detected (NOT DETECTE) Parainfluenza 2 (PCR) Not detected (NOT DETECTE) Parainfluenza 3 (PCR) Not detected (NOT DETECTE) Parainfluenza 4 (PCR) Not detected (NOT DETECTE) RSV (RT-PCR) Not detected (NOT DETECTE) Entero/Rhino (PCR) Not detected (NOT DETECTE) SARS-CoV-2 (PCR) Not detected (NOT DETECTE) Bordetella pertussis (PCR) Not detected (NOT DETECTE) B parapertussis DNA PCR Not detected (NOT DETECTE) Influenza Type A (PCR) Not detected (NOT DETECTE) Influenza Type B (PCR) Not detected (NOT DETECTE) 10/02/22 Range/Units 23:17 WBC (4.0-11.0) 10^3/uL RBC (4.20-5.40) 10^6/uL Hgb (12.0-16.0) g/dL Hct (36.0-48.0) % MCV (81.0-99.0) fL MCH (26.7-34.0) pg MCHC (29.9-35.2) g/dL RDW (11.0-15.0) % Plt Count (150-450) 10^3/uL MPV (9.5-13.5) fL Seg Neuts % (Manual) Lymphocytes % (Manual) (20.5-60.0) % Monocytes % (Manual) (1.7-12.0) % Eosinophils % (Manual) (0.9-7.0) % Basophils % (Manual) (0.2-2.0) % Neutrophils # (Manual) (1.4-6.5) 10^3/uL Lymphocytes # (Manual) (1.20-3.80) 10^3/uL Monocytes # (Manual) (0.30-0.80) 10^3/uL Eosinophils # (Manual) (0.00-0.70) 10^3/uL Basophils # (Manual) (0.00-0.10) 10^3/uL Puncture Site ABG pH (7.350-7.450) ABG pCO2 (35.0-45.0) mmHg ABG pO2 (80.0-100.0) mmHg ABG HCO3 (22.0-26.0) mmol/L ABG O2 Saturation % ABG Base Excess (-2.0-2.0) mmol/L Tal Test (POSITIVE) O2 Liters/Min Sodium (136-145) mmol/L Potassium (3.5-5.1) mmol/L Chloride (98-107) mmol/L Carbon Dioxide (21.0-32.0) mmol/L Anion Gap BUN (7.0-18.0) mg/dL Creatinine (0.55-1.02) mg/dL Est GFR ( Amer) (>=60) Est GFR (Non-Af Amer) (>=60) BUN/Creatinine Ratio Glucose (74-106) mg/dL Lactate 5.2 H* (0.4-2.0) mmol/L Calcium (8.5-10.1) mg/dL Total Bilirubin (0.2-1.0) mg/dL Direct Bilirubin (0.0-0.2) mg/dL AST (15-37) U/L ALT (14-59) U/L Alkaline Phosphatase (46-116) U/L Ammonia (11-32) umol/L Troponin I High Sens (4.0-51.3) pg/mL Total Protein (6.4-8.2) g/dL Albumin (3.4-5.0) g/dL Globulin g/dL Albumin/Globulin Ratio Urine Color (YELLOW) Urine Clarity (CLEAR) Urine pH (5.0-9.0) Ur Specific [place] (1.005-1.025) Urine Protein (NEG/TRACE) mg/dL Urine Glucose (UA) (NEGATIVE) mg/dL Urine Ketones (NEGATIVE) mg/dL Urine Occult Blood (NEGATIVE) Urine Nitrite (NEGATIVE) Urine Bilirubin (NEGATIVE) Urine Urobilinogen (0.2-1.0) EU/dL Ur Leukocyte Esterase (NEGATIVE) Urine RBC (0-2) #/HPF Urine WBC (NONE SEEN) #/HPF Ur Squamous Epith Cells (NONE/RARE) #/LPF Urine Bacteria (NONE SEEN) #/HPF Urine Mucus (NONE SEEN) Salicylates (<=19.9) mg/dL Urine Opiates Screen (NEGATIVE) Ur Buprenorphine Scrn (NEGATIVE) Ur Oxycodone Screen (NEGATIVE) Urine Methadone Screen (NEGATIVE) Ur Propoxyphene Screen (NEGATIVE) Acetaminophen (10.0-30.0) ug/mL Ur Barbiturates Screen (NEGATIVE) U Tricyclic Antidepress (NEGATIVE) Ur Phencyclidine Scrn (NEGATIVE) Ur Amphetamines Screen (NEGATIVE) U Methamphetamines Scrn (NEGATIVE) U Benzodiazepines Scrn (NEGATIVE) Urine Cocaine Screen (NEGATIVE) U Cannabinoids Screen (NEGATIVE) Ethanol Quant mg/dL Adenovirus (PCR) (NOT DETECTE) C. pneumoniae DNA (PCR) (NOT DETECTE) Coronavirus Type OC43 (NOT DETECTE) Coronavirus Type HKU1 (NOT DETECTE) Coronavirus Type 229E (NOT DETECTE) Coronavirus Type NL63 (NOT DETECTE) Human Metapneumovir PCR (NOT DETECTE) M. pneumoniae (PCR) (NOT DETECTE) Parainfluenza PCR (NOT DETECTE) Parainfluenza 2 (PCR) (NOT DETECTE) Parainfluenza 3 (PCR) (NOT DETECTE) Parainfluenza 4 (PCR) (NOT DETECTE) RSV (RT-PCR) (NOT DETECTE) Entero/Rhino (PCR) (NOT DETECTE) SARS-CoV-2 (PCR) (NOT DETECTE) Bordetella pertussis (PCR) (NOT DETECTE) B parapertussis DNA PCR (NOT DETECTE) Influenza Type A (PCR) (NOT DETECTE) Influenza Type B (PCR) (NOT DETECTE) Critical Care Time Critical Care Time Critical Care Time: Yes Total Critical Care Time: 35 Attestation: Pt signed out to me and evaluated and treated by myself. Discharge Plan Discharge Chief Complaint: Neuro Symptoms/Deficit Clinical Impression: Altered mental status Patient Disposition: [facility] Time of Disposition Decision: 15:59 Discharge Location: [facility] Mode of Transportation: EMS
--- NOTE | 2022-10-02 22:52 | PC.NURSE ---
Son provided with room number. Still awaiting ETA
[2022-10-02 23:47] LABS: Lactate/Lactic Acid 5.2 mmol/L (0.4-2.0)
[2022-10-03] MEDS: 0.9 % SODIUM CHLORIDE 1,000 ML 125 ML IV (00:29)
[2022-10-03 00:32] VITALS: BP 138/64; PULSE 111; RESP 16; TEMP 38; O2SAT 96
--- NOTE | 2022-10-03 00:40 | PC.NURSE ---
Right eye is somewhat centered left eye is devated in a downward position. No reflex when eye is touched.
--- NOTE | 2022-10-03 00:51 | PC.NURSE ---
Eddie Celis at [phone]
--- NOTE | 2022-10-03 01:20 | PC.NURSE ---
Report to [facility] [phone]
[2022-10-05 14:09] LABS: Procalcitonin 0.09 ng/mL (0.00-0.08)
--- NOTE | 2022-10-06 12:26 | PC.NURSE ---
10/06/22 1226 Kian OROPEZA reviewed pt Procalitonin level from 10/02/22 nno at this time. Monica Williamson RN
== END 2022-10-03 01:20 | disposition short-term general hospital (02) ==
PROVIDERS: Emergency Medicine; Emergency Provider Emergency Medicine; PCP Internal Medicine
DX: R41.82 Altered mental status, unspecified (principal); Z20.822 Contact with and (suspected) exposure to COVID-19
CPT/HCPCS: 0202U; 36415; 36600; 70450; 71045; 74177; 80048; 80076; 80179; 80307; 80320; 80329; 81001; 82140; 82805; 83605; 84145; 84484; 85027; 87040; 93005; 96365; 96366; 96367; 99285; J3370; Q9967